=== PATIENT | male | born 1970 | race Caucasian/White ===

== ENCOUNTER 2017-06-15 07:48 | Day surgery (SDC) | payer BC ==
[~2017-06-15 07:48] MED LIST: CHONDR SU A NA/HYALUR INTRAOC KIT (SURGICARE) ONE; EPINEPHRINE INJ/PF 1 MG/1 ML AMPULE ONE; KETOROLAC TROMETHAMINE 0.45% 4 DROP/0.4 ML DROPERETTE OD PRN; LIDOCAINE 1% INJ-PF (10 MG/ML) 30 ML SDV ONE
[2017-06-15] MEDS: TETRACAINE HCL 0.5% OPH SOLN 2 ML OD PRN ×3 (08:18→08:53)
[2017-06-15] MEDS: TROPICAMIDE 1% OPH SOLN 3 ML OD PRN ×3 (08:19→08:47)
[2017-06-15] MEDS: CYCLOPENTOLATE 0.2%/PHENYLEPHRINE 1% OPH SOLN 2 ML OD PRN ×3 (08:19→08:47)
[2017-06-15] MEDS: BESIFLOXACIN HCL 0.6% OPH SUSP 5 ML BOTTLE OD PRN ×3 (08:20→09:22)
[2017-06-15] MEDS ORDERED: MIDAZOLAM 2 MG/2 ML INJ ONE (08:32)
--- NOTE | 2017-06-15 15:48 | [facility] OPERATIVE REPORT E ---
[facility] Operative Report NAME: GARLAND WELLS AGE: 46Y DATE OF SURGERY: 06/15/2017 ROOM: PREOPERATIVE DIAGNOSIS: CATARACT, RIGHT EYE. POSTOPERATIVE DIAGNOSIS: CATARACT, RIGHT EYE. OPERATION: Cataract extraction with right eye with insertion of a toric IOL. SURGEON: BASIL CHAVIS M.D. ANESTHESIA: Topical. PROCEDURE: After obtaining appropriate consent, the patient's right eye was prepped and draped in sterile fashion as well as the surgeon in a sterile manner and cataract surgery was started. First a paracentesis blade was used to make a small side-port incision. Viscoelastic was used to inflate the anterior chamber. Next a 2.4 mm incision was made with the paracentesis blade. A continuous capsulorrhexis incision was made using a cystotome and Utrata forceps. Following this hydrodissection was carried out to make the lens fully loose and mobile and it was rotated to 6 degrees. Following this, a cuygcf-gjs-molxmei technique was used to phacoemulsify the lens with a CDE of 10.93. The remaining cortex was removed with irrigation/aspiration. Provisc was instilled into the capsular bag to inflate the bag. A SN6AT3, 21.0 diopter lens was placed. The remaining viscoelastic material was removed with irrigation/aspiration. Following this, a 10-0 nylon suture was used to close the incision and it was found to be watertight. Vigamox was instilled in the eye and a protective shield was placed over the eye. The patient returned to the postoperative recovery in stable condition. DICTATING PHYSICIAN: BASIL CHAVIS M.D. [id number] PHY#: [id number] ID: [id number] JOB#: [id number] ACCT: [id number] cc:BASIL CHAVIS M.D. >
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
== END 2017-06-15 09:58 | disposition home or self-care (01) ==
LOC: SC 07:48
PROVIDERS: ATTEND Internal Medicine
PROC: 08RJ3JZ Replacement of Right Lens with Synthetic Substitute, Percutaneous Approach (ICD-10-PCS; principal; 2017-06-15 09:00)
DX: H25.13 Age-related nuclear cataract, bilateral (principal); E11.9 Type 2 diabetes mellitus without complications; M19.90 Unspecified osteoarthritis, unspecified site; I51.9 Heart disease, unspecified; Z79.899 Other long term (current) drug therapy; Z87.891 Personal history of nicotine dependence; Z79.82 Long term (current) use of aspirin; Z79.84 Long term (current) use of oral hypoglycemic drugs; Z79.02 Long term (current) use of antithrombotics/antiplatelets
CPT/HCPCS: 82962; 66984; V2787; J2250; J3490 ×2; J0171; 142